=== PATIENT | female | born 1995 | race Caucasian/White ===

== ENCOUNTER 2017-04-06 14:28 | Inpatient (IN) | payer BC ==
--- NOTE | 2017-04-06 14:49 | ED ---
Psychiatric Complaint - HPI Summary HPI Summary: 941 - Pt states stressed out from school. Pt says she was suppose to turn in project but did not complete project. Pt admits to taking adderoll to help keep her up to do project. Pt very twitchy. She is very depressed and anxious on exam about not completing a paper that was due and now is stating she will not have a job or a life, etc. She states she talked about SI to get attention, but denies any currently. Denies physical pain. She is requesting .5mg xanax on arrival. She has been otherwise healthy. - History Of Current Complaint Chief Complaint: EDMentalHealth Time Seen by Provider: 04/06/17 14:45 Hx Obtained From: Patient ?: No Onset/Duration: Sudden Onset Timing: Constant Severity Initially: Moderate Severity Currently: Moderate Aggravating Factor(s): Nothing Alleviating Factor(s): Nothing Associated Signs And Symptoms: Positive: Negative Related History: Positive For: Prior Psychiatric Issues Has Suicidal: Reports: Thoughts - Risk Factor(s) Completed Suicide Risk Factors: Negative - Allergies/Home Medications Allergies/Adverse Reactions: Allergies Allergy/AdvReac Type Severity Reaction Status Date / Time No Known Allergies Allergy Verified 06/06/15 12:19 Home Medications: Home Medications ALPRAZolam TAB* [Xanax TAB*] 0.25 mg PO BID PRN 04/06/17 [History Confirmed 10/16] Norethindr/Eth Estradiol(Nf) [Lo Loestrin Fe (NF)] 1 tab PO DAILY 04/06/17 [ History Confirmed 04/06/17] hydrOXYzine HCL TAB* [Atarax 25 MG TAB*] 25 mg PO QID PRN 04/06/17 [History Confirmed 04/06/17] PMH/Surg Hx/FS Hx/Imm Hx Previously Healthy: Yes Endocrine/Hematology History: Denies: Hx Thyroid Disease Sensory History: Reports: Hx Contacts or Glasses Opthamlomology History: Reports: Hx Contacts or Glasses Psychiatric History: Reports: Hx Anxiety, Hx Inpatient Treatment - [facility], 2014, Hx Bipolar Disorder, Hx Substance Abuse - pt admitted to using cannabinoids on regular basis, tox screem positive, Other Psychiatric Issues/ Disorders - pt stated she was Dx with ADD Denies: Hx Eating Disorder, Hx Suicide Attempt, Hx of Violent Episodes Against Others - Immunization History Hx Pertussis Vaccination: No Immunizations Up to Date: Unable to Obtain/Confirm Infectious Disease History: No Infectious Disease History: Denies: Traveled Outside the [place] in Last 30 Days - Social History Occupation: Unemployed, Student Lives: With Family Alcohol Use: Weekly Alcohol Amount: 3-4 drinks Hx Substance Use: Yes Substance Use Type: Reports: Marijuana Substance Use Comment - Amount & Last Used: pt stated she last used cannabinoids 1 week ago. usually uses 3-4 x per wee Hx Tobacco Use: No Smoking Status (MU): Never Smoked Tobacco Review of Systems Constitutional: Negative Negative: Fever, Chills, Fatigue Eyes: Negative ENT: Negative Respiratory: Negative Genitourinary: Negative Positive: no symptoms reported, see HPI Musculoskeletal: Negative Neurological: Negative Psychological: Normal All Other Systems Reviewed And Are Negative: Yes Physical Exam Triage Information Reviewed: Yes Vital Signs On Initial Exam: Initial Vitals Temp Pulse Resp BP Pulse Ox 98.8 F 125 16 139/84 100 04/06/17 14:30 04/06/17 14:30 04/06/17 14:30 04/06/17 14:30 04/06/17 14:30 Vital Signs Reviewed: Yes Appearance: Positive: Well-Appearing, Well-Nourished Skin: Positive: Warm, Skin Color Reflects Adequate Perfusion Head/Face: Positive: Normal Head/Face Inspection Eyes: Positive: EOMI, [place], Conjunctiva Clear Respiratory/Lung Sounds: Positive: Clear to Auscultation, Breath Sounds Present Cardiovascular: Positive: Normal, RRR, Pulses are Symmetrical in both Upper and Lower Extremities Musculoskeletal: Positive: Normal, Strength/ROM Intact Neurological: Positive: Speech Normal Psychiatric: Positive: Anxious - Zuri Coma Scale Best Eye Response: 4 - Spontaneous Best Motor Response: 6 - Obeys Commands Best Verbal Response: 5 - Oriented Diagnostics - Vital Signs Vital Signs Temp Pulse Resp BP Pulse Ox 04/06/17 14:30 98.8 F 125 16 139/84 100 - Laboratory Result Diagrams: 04/06/17 15:00 04/06/17 15:00 Lab Statement: Any lab studies that have been ordered have been reviewed, and results considered in the medical decision making process. Course/Dx - Course Course Of Treatment: Patient presents to the ED with CC of anxiety and depression. She endorses SI but denies on arrival stating it was for attention. She is now upset she is here. She is cleared for [facility] who states they will admit. She is given .5mg ativan on arrival. - Differential Dx/Clinical Impression Provider Diagnosis: Anxiety Discharge - Discharge Plan Condition: Stable Disposition: ADMITTED TO [facility] Referrals: No Primary Care Phys,NOPCP [Primary Care Provider] -
[2017-04-06 15:09] LABS: Hematocrit 41 % (35-47); Mean Corpuscular HGB Conc 34 g/dl (31-36); Mean Corpuscular Hemoglobin 31 pg (27-31); Mean Corpuscular Volume 90 fL (80-97); Mean Platelet Volume 9 um3 (7.4-10.4); Red Blood Count 4.53 10^6/ul (4.0-5.4); Red Cell Distribution Width 13 % (10.5-15); White Blood Count 11.5 10^3/ul (3.5-10.8)
[2017-04-06 15:23] LABS: ALT 35 U/L (7-52); AST 35 U/L (13-39); Alkaline Phosphatase 68 U/L (34-104); Anion Gap 8 mmol/L (2-11); Blood Urea Nitrogen 8 mg/dL (6-24); CO2 Carbon Dioxide 27 mmol/L (22-32); Calcium 9.6 mg/dL (8.6-10.3); Chloride 98 mmol/L (101-111); EGFR African American 128.2 (>60); EGFR Non-African American 99.7 (>60); Globulin 2.4 g/dL (2-4); Glucose 100 mg/dL (70-100); Potassium 3.6 mmol/L (3.5-5.0); Sodium 133 mmol/L (133-145); Total Protein 7.4 g/dL (6.4-8.9)
[2017-04-06 15:27] LABS: Benzodiazepine Urine Screen None Detected (None Detect)
[2017-04-06 15:47] LABS: Acetaminophen < 15 mcg/mL; Alcohol < 10 mg/dL (<10); Salicylate < 2.50 mg/dL (<30)
[2017-04-06 16:01] LABS: TSH (Thyroid Stimulating Horm) 0.87 mcIU/mL (0.34-5.60)
[2017-04-06 16:28] LABS: Urine Bilirubin Negative (Negative); Urine Glucose Negative (Negative); Urine Nitrite Negative (Negative)
[2017-04-06] MEDS ORDERED: ALPRAZolam TAB* 0.5 MG PO ONE (18:05)
[2017-04-06] MEDS ORDERED: Al Hydrox/Mg Hydrox/Simet LIQ* 30 ML UDC PO PRN (21:44)
[2017-04-06] MEDS ORDERED: Acetaminophen TAB* 325 MG PO PRN (21:44)
[2017-04-06] MEDS: LORazepam TAB(*) 1 MG PO PRN (23:30)
[2017-04-07] MEDS: Vitamin THERAPEUTIC TAB PO SCH (09:18)
[2017-04-07] MEDS: LORazepam TAB(*) 1 MG PO PRN (18:27)
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
[2017-04-07] MEDS ORDERED: Sertraline* 50 MG TAB PO SCH (21:00)
[2017-04-08] MEDS: LORazepam TAB(*) 1 MG PO PRN ×2 (00:15→09:19)
[2017-04-08 08:10] VITALS: BP 109/71
[2017-04-08] MEDS: Vitamin THERAPEUTIC TAB PO SCH (09:19)
--- NOTE | 2017-04-09 00:53 | DS ---
DISCHARGE SUMMARY: DATE OF ADMISSION: 04/06/17 DATE OF DISCHARGE: 04/08/17 SUPERVISING PSYCHIATRIST: Dr. Jose King * (DICTATED BY YESSENIA CHANEL NP) DISCHARGE DIAGNOSES: 1. Adjustment disorder with anxiety. 2. Unspecified anxiety disorder. 3. Stimulant use disorder. CONDITION AT THE TIME OF DISCHARGE: Mildly improved. The patient reports improved sleep last night with the exception of being awakened at 6 a.m. by her roommate. She reports readiness to complete her last 2 assignments for her final semester at [employer]. Her father is present and is advocating for discharge. They plan to fly home to [place] this evening. The patient will be supervised by parents and supported in her endeavors to complete her academic requirements for graduation. The patient reports unit milieu is causing worsening anxiety. The patient reports efficacy with use of Ativan and states understanding to use this sparingly and will receive lower dose upon discharge. She reports intent to continue sertraline upon discharge. Denies side effects from initial dose. MENTAL STATUS EXAM AT TIME OF DISCHARGE: The patient is well groomed and dressed in her own clothing. Her hair is down and her ADLs are performed. She sits on a chair at a table and has erect posture. She shakes her foot rapidly at times. She is cooperative and answers questions fully. She appears to be more comfortable with the physician underwriter in comparison to initial interview. She is alert and oriented x3. Her concentration is fair. Her memory is good. Her mood is "okay." Her affect is constricted and congruent. Her speech is soft and articulate. Thought process is circumstantial in regards to be discharged. Content of thought: The patient denies SI or SIB urges. She denies AV hallucinations. She is logical and coherent. Her insight is fair. Her judgment is fair. Her fund of knowledge is adequate. DISCHARGE INSTRUCTIONS: Given to the patient and her father: A. Medications: Sertraline 50 mg p.o. q.h.s. and lorazepam 1 mg p.o. t.i.d. p.r.n. anxiety, MDD 3 mg. These 2 medications were electronically prescribed to [facility], 1-week supply only. The patient and her father are strongly encouraged to dispose previous prescriptions of alprazolam and Adderall safely. B. Diet: Regular. C. Activities: Ambulation as tolerated. Tobacco cessation is not applicable. There are no pending labs or diagnostic studies at the time of discharge. D: Followup care: The patient's family has secured an intake appointment with psychiatrist, Dr. Augie Olmedo, on 04/12/17 at 5:30 p.m. The patient is given information by corporate event planner for emergency and walk-in services for [facility]. The patient and father are encouraged to call unit phone number with questions and concerns post discharge. E. Substance abuse followup: Not applicable. The patient is encouraged to refrain. The patient's father is strongly encouraged for the patient to refrain from use of stimulant medications in the future. HOSPITAL COURSE: Part-A. Reason for admission: The patient was brought to the emergency department by [place] police after they were notified by her father, she had been acting erratic and made suicidal statements in the context of completing academic requirements for her final semester at [employer]. Part-B. Psychiatric treatment rendered: The patient was admitted to adult behavioral services unit on voluntary status. She was full code status and placed on 15-minute checks for safety. Laboratory data obtained in emergency department, her CBC was grossly unremarkable. Her CMP was within normal limits. TSH was 0.87 and her beta hCG negative. Urinalysis within normal limits. Toxicology positive for amphetamines and this was congruent with the patient's report of utilizing an old prescription of Adderall. Urine drug screen was negative for other substances. The patient had reported use of prescribed alprazolam. It is likely that that was a false negative. The patient participated in psychiatric interview. She was somewhat guarded and admitted that she was hesitant to disclose full information due to the fear of needing to be hospitalized for "2 weeks." The patient was able to identify stressors of 2 assignments that were due for her to graduate this semester. She reported utilizing an old prescription of Adderall as well as some from that she had diverted from her boyfriend. She was using prescribed alprazolam. Her father visited from [place] when the patient was distressed and unable to cope with completing her final assignments. The patient was increasingly anxious and erratic. She was not sleeping. She cut herself with a knife superficially on her left forearm due to emotional dysregulation. She denied that this was a suicide attempt. She states that she was "trying to get attention." She reported that she did not mean it when she made a suicidal statement to her father. She presented as agitated and under the influence of a stimulant. She was agreeable to discontinue this medication and to trial sertraline for unspecified anxiety disorder. She was also agreeable to lorazepam for anxiety. After initial interview with the patient, this physician underwriter met with the patient and her father, discussed presentation and events leading to admission. Professor Of Art and father agreed that continued hospitalization for 1 more night for evaluation and stabilization was indicated. The patient was encouraged to utilize p.r.n. medications, unit milieu, and to regain her sleep schedule. This morning, the patient presented as calm and in behavioral control. She was more linear in thought and did not appear under the influence of a stimulant. She had utilized lorazepam on the unit as needed with good effect. She reported sleeping well with the exception of being awakened by her roommate at 6 a.m. The patient's father was present and advocating for discharge. As stated above , he had made travel arrangements for the both of them to return to [place] this evening. The patient agrees to return home and to complete her assignments that are due to graduate next week. She states that she is also in agreement with backup plan to take an incomplete in 1 class if need be to finish the project for graduation. The patient and father had been in contact with professors and [employer] human resources office manager and made arrangement for the patient' s academic responsibilities. The patient's father and mother secured an intake appointment with a psychiatrist near their home in [place] next week and has an appointment on 04/12/17 at 5:30 as stated above. Due to improved presentation and obligation to treat in least restrictive setting, discharge was agreed upon by treatment team. The patient and father were given written discharge instructions and encouraged to contact unit or this physician underwriter with questions or concerns post discharge. YESSENIA CHANEL NP [id number]/CPS #: [id number] LINNEA
== END 2017-04-08 13:00 | disposition home or self-care (01) | DRG 755 ==
LOC: ED 14:28 → BSU 21:06
PROVIDERS: ADMIT Psychiatry & Neurology Psychiatry; ATTEND Psychiatry & Neurology Psychiatry
DX: F43.22 Adjustment disorder with anxiety (principal); F12.90 Cannabis use, unspecified, uncomplicated; F41.9 Anxiety disorder, unspecified; F31.9 Bipolar disorder, unspecified; R40.2362 Coma scale, best motor response, obeys commands, at arrival to emergency department; R40.2142 Coma scale, eyes open, spontaneous, at arrival to emergency department; F15.10 Other stimulant abuse, uncomplicated; R40.2252 Coma scale, best verbal response, oriented, at arrival to emergency department; Z91.410 Personal history of adult physical and sexual abuse; Z72.89 Other problems related to lifestyle
CPT/HCPCS: 36415; 80053; 80307; 80320; 80329; 81003; 84443; 84702; 85025; 99222; 99238; A9270-GY; G0480